=== PATIENT | male | born 1955 | race African-American/Black ===

== ENCOUNTER 2018-02-10 20:01 | Emergency (ER) | payer OTHER ==
[~2018-02-10 20:01] MED LIST: ISOVUE-370 76%-LOCM 1 ML ONE
[2018-02-10 20:25] LABS: Hemoglobin 12.9 g/dL (14.0-18.0); INR-International Normal Ratio 1.3; Mean Corpuscular HGB CONC 31.8 g/dL (32.0-36.0); Mean Corpuscular Hemoglobin 29.6 pg (27.0-31.0); Mean Corpuscular Volume 93.2 fL (78.0-98.0); Mean Platelet Volume 9.8 fL (7.4-10.4); PTT 31.1 SEC (22.9-36.1); Platelet Count 82 thou/uL (130-400); Prothrombin Time 16.2 SEC (12.0-14.7); RBC Distribution Width 13.8 % (11.5-14.5); Red Blood Cell (RBC) Count 4.35 mill/uL (4.70-6.10); White Blood Cell (WBC) Count 6.5 thou/uL (4.8-10.8)
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
[2018-02-10 20:35] LABS: ALT (SGPT) 23 U/L (8-55); AST (SGOT) 43 U/L (5-34); Albumin 3.6 g/dL (3.4-4.8); Alkaline Phosphatase 95 U/L (40-150); Anion Gap 13 mmol/L (10-20); BUN (Urea Nitrogen) 9 mg/dL (8.4-25.7); Calc. Creatinine Clearance 0 mL/min (70-130); Calcium 9.4 mg/dL (7.8-10.44); Carbon Dioxide 22 mmol/L (23-31); Chloride 105 mmol/L (98-107); Estimated GFR-MDRD Greater than 90; Glucose 100 mg/dL (80-115); Lipase 19 U/L (8-78); Potassium 3.6 mmol/L (3.5-5.1); Protein, Total 8.6 g/dL (5.8-8.1); Sodium 136 mmol/L (136-145)
[2018-02-10 20:46] LABS: Eosinophils 3 % (0-10); Lymphocytes 55 % (21-51); MDiff Complete? YES; Monocytes 9 % (0-10); Neutrophil 33 % (42-75); PLT Morphology Comment Appears Decreased
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
[2018-02-10] MEDS ORDERED: Lidocaine 1% w/Epinephrine 1:100K 20 ML VIAL ONE (21:48)
[2018-02-10] MEDS ORDERED: Adacel (T-DAP) 0.5 ML VIAL ONE (22:02)
== END 2018-02-10 23:45 | disposition home or self-care (01) ==
LOC: ERS 20:01
DX: S51.011A Laceration without foreign body of right elbow, initial encounter (principal); S81.011A Laceration without foreign body, right knee, initial encounter; S09.90XA Unspecified injury of head, initial encounter; R07.9 Chest pain, unspecified; M25.559 Pain in unspecified hip; V69.9XXA Occupant (driver) (passenger) of heavy transport vehicle injured in unspecified traffic accident, initial encounter
CPT/HCPCS: 12002; 36415; 70450; 71045; 71260; 72125; 74177; 80053; 83690; 85025; 85610; 85730; 90471; 90715; G0390; J2001